=== PATIENT | male | born 1960 | race Caucasian/White ===

== ENCOUNTER 2018-11-04 10:42 | Emergency (ER) | payer MEDICAID ==
[2018-11-04] MEDS ORDERED: Aspirin 81 MG Tab.Chew PO ONE (11:11)
--- NOTE | 2018-11-04 11:11 | EDM.PDOC ---
ED HPI GENERAL MEDICAL PROBLEM - General Chief Complaint: Chest Pain Stated Complaint: CHEST PAINS Time Seen by Provider: 11/04/18 10:50 Source of Information: Reports: Patient History Limitations: Reports: No Limitations - History of Present Illness INITIAL COMMENTS - FREE TEXT/NARRATIVE: 58-year-old male with known coronary artery disease, several vessel bypass 7 years ago who stopped taking his blood pressure medication 5 years ago. He's been having worsening chest pain with activity for several months. He continues to smoke. He's been having more pain at rest. He called the clinic 2 days ago to reestablish a provider, and was told there was not one available. Last night he had a "rough night" so came in today. On arrival he was having some chest pressure and EKG was done which showed 1 PVC and what appeared to be a partial left bundle branch block. Onset: Unknown/Unsure Duration: Chronic Associated Symptoms: Reports: Chest Pain, Malaise, Shortness of Breath Chest Pain Score (Numeric/FACES): 5 - Related Data Allergies Allergy/AdvReac Type Severity Reaction Status Date / Time No Known Allergies Allergy Verified 11/04/18 10:48 Home Meds: Home Meds Aspirin [Halfprin] 81 mg PO DAILY 11/04/18 [History] Past Medical History Cardiovascular History: Reports: Bypass, CAD, High Cholesterol, Hypertension Endocrine/Metabolic History: Reports: Obesity/BMI 30+ - Past Surgical History Head Surgeries/Procedures: Reports: None Cardiovascular Surgical History: Reports: Coronary Artery Bypass Endocrine Surgical History: Reports: None Dermatological Surgical History: Reports: None Social & Family History - Tobacco Use Smoking Status *Q: Current Every Day Smoker Years of Tobacco use: 40 Packs/Tins Daily: 1 Second Hand Smoke Exposure: No - Caffeine Use Caffeine Use: Reports: Coffee - Alcohol Use Days Per Week of Alcohol Use: 2 Number of Drinks Per Day: 2 Total Drinks Per Week: 4 - Recreational Drug Use Recreational Drug Use: No ED ROS GENERAL - Review of Systems Review Of Systems: See Below Constitutional: Reports: Malaise, Weight Gain. Denies: Fever, Chills Respiratory: Reports: Shortness of Breath Cardiovascular: Reports: Chest Pain. Denies: Palpitations GI/Abdominal: Reports: Nausea. Denies: Abdominal Pain, Vomiting Skin: Reports: Diaphoresis Neurological: Reports: No Symptoms, Paresthesia (Has been experiencing numbness in his lower extremities, especially on the right side) ED EXAM, GENERAL - Physical Exam Exam: See Below Exam Limited By: No Limitations General Appearance: Alert, No Apparent Distress Respiratory/Chest: No Respiratory Distress, Wheezing (Patient has scattered expiratory wheezes) Cardiovascular: Regular Rate, Rhythm, Extra Beats (Occasional extra beats, no murmur) GI/Abdominal: Soft, Non-Tender Extremities: Other (Strong dorsalis pedis pulse on the left, weaker on the right ) Neurological: Alert, Oriented Skin Exam: Warm, Dry Course - Vital Signs Last Recorded V/S: Last Vital Signs Temp 98 F 11/04/18 10:51 Pulse 79 11/04/18 12:05 Resp 15 11/04/18 12:05 BP 148/99 H 11/04/18 12:05 Pulse Ox 94 L 11/04/18 12:05 - Orders/Labs/Meds Orders: Active Orders 24 hr Category Date Time Status EKG Documentation Completion [RC] ASDIRECTED Care 11/04/18 11:04 Active EKG 12 Lead [EK] Routine Ther 11/04/18 11:04 Ordered Labs: Laboratory Tests 11/04/18 11/04/18 Range/Units 11:04 11:04 WBC 7.4 (4.5-11.0) K/uL RBC 5.22 (4.30-5.90) M/uL Hgb 15.5 H (12.0-15.0) g/dL Hct 45.8 (40.0-54.0) % MCV 88 (80-98) fL MCH 30 (27-31) pg MCHC 34 (32-36) % Plt Count 222 (150-400) K/uL Neut % (Auto) 55 (36-66) % Lymph % (Auto) 32 (24-44) % Foster % (Auto) 10 H (2-6) % Eos % (Auto) 2 (2-4) % Baso % (Auto) 1 (0-1) % Sodium 137 L (140-148) mmol/L Potassium 4.1 (3.6-5.2) mmol/L Chloride 104 (100-108) mmol/L Carbon Dioxide 24 (21-32) mmol/L Anion Gap 13.1 (5.0-14.0) mmol/L BUN 16 (7-18) mg/dL Creatinine 1.2 (0.8-1.3) mg/dL Est Cr Clr Drug Dosing 74.55 mL/min Estimated GFR (MDRD) > 60 (>60) Glucose 124 H (74-106) mg/dL Calcium 8.9 (8.5-10.1) mg/dL Total Bilirubin 0.3 (0.2-1.0) mg/dL AST 23 (15-37) U/L ALT 45 (12-78) U/L Alkaline Phosphatase 94 (46-116) U/L Troponin I < 0.017 (0.000-0.056) ng/mL Total Protein 7.2 (6.4-8.2) g/dL Albumin 3.6 (3.4-5.0) g/dL Globulin 3.6 H (2.3-3.5) g/dL Albumin/Globulin Ratio 1.0 L (1.2-2.2) Meds: Medications Discontinued Medications Generic Name Dose Route Start Last Admin Trade Name Freq PRN Reason Stop Dose Admin Aspirin 324 mg 11/04/18 11:11 11/04/18 11:14 Aspirin PO 11/04/18 11:12 324 mg ONETIME ONE Administration Heparin Sodium (Porcine) 5,000 units 11/04/18 12:43 11/04/18 13:04 Heparin Sodium IVPUSH 11/04/18 12:44 5,000 units ONETIME ONE Administration Nitroglycerin/Dextrose 25 mg in 250 mls @ 6 mls/hr 11/04/18 11:15 11/04/18 11 :40 Nitroglycerin 25 Mg/D5w 250 Ml IV 18.33 mcg/min TITRATE JEANINE 11 mls/hr Titration Protocol 10 MCG/MIN Heparin Sodium/Dextrose 25,000 units in 500 mls @ 16 mls/hr 11/04/18 13:00 13:05 Heparin 25,000 Units In D5w 500 Ml IV 800 units/hr TITRATE JEANINE 16 mls/hr Administration Protocol 800 UNITS/HR - Re-Assessments/Exams Free Text/Narrative Re-Assessment/Exam: 11/04/18 12:51 An IV was started, the patient had 324 mg of aspirin chewable given, and because of the angina-like symptoms and hypertension, nitro drip was started. Initial EKG showed a partial bundle branch block which I had no EKGs to compare. There was no significant ST segment concerns. CBC, CMP were obtained as well as a troponin. Nitroglycerin was titrated to 35 mcg/m and the pain resolved, blood pressure improved, labs returned reassuring with a troponin of 0. However with his known coronary artery disease history, increasing anginal symptoms to unstable angina, and significant noncompliance with medications and risk factors the patient was heparinized and will be sent to [place] for further evaluation. He is accepted by Dr. James, hospitalist service at [facility], and will be transported by ambulance. Departure - Departure Time of Disposition: 13:19 Disposition: DC/Tfer to Other Reason for Transfer *Q: Other Clinical Impression: Unstable angina Referrals: PCP,None [Primary Care Provider] - Forms: ED Department Discharge Care Plan Goals: Patient will be transferred to be such a hospital in [place] for admission, cardiology evaluation and further intervention if necessary. - My Orders Last 24 Hours: My Active Orders 11/04/18 11:04 EKG Documentation Completion [RC] ASDIRECTED EKG 12 Lead [EK] Routine - Assessment/Plan Last 24 Hours: My Active Orders 11/04/18 11:04 EKG Documentation Completion [RC] ASDIRECTED EKG 12 Lead [EK] Routine
[2018-11-04] MEDS ORDERED: Nitroglycerin/D5W 25 MG/250 ML BOTTLE IV SCH (11:15)
[2018-11-04 12:06] VITALS: BP 148/99; PULSE 79
[2018-11-04] MEDS ORDERED: Heparin Sodium 5,000 Units/ML Vial IVPUSH ONE (12:43)
[2018-11-04] MEDS ORDERED: Heparin Sodium/D5W 25,000 UNITS/500 ML BAG IV SCH (13:00)
== END 2018-11-04 13:20 | disposition other institution (70) ==
LOC: JP.ED 10:42
DX: I20.0 Unstable angina (principal); E78.00 Pure hypercholesterolemia, unspecified; I10 Essential (primary) hypertension; F17.210 Nicotine dependence, cigarettes, uncomplicated; Z79.82 Long term (current) use of aspirin; Z95.1 Presence of aortocoronary bypass graft; Z79.899 Other long term (current) drug therapy
CPT/HCPCS: 36415; 80053; 84484; 85025; 93005; 96365; 96366; 96375; 99285; A9270; J1644; J3490